=== PATIENT | male | born 1960 ===

== ENCOUNTER 2021-06-14 10:38 | Inpatient (IN) | payer OTHER ==
[~2021-06-14] VITALS: Ht 172.7 cm; Wt 69.2 kg
[2021-06-14] VITALS (566 sets, daily range): BP systolic 105; BP diastolic 70; PULSE 84; TEMP 98.6; O2SAT 82–99
[2021-06-14] MEDS ORDERED: PRILOSEC 20MG20 MG PO (10:51)
[2021-06-14 11:23] LABS: BASO % 0.4 % (0.0-2.0); EOS # 0.1 K/mm3 (0.0-0.7); EOS % 1.5 % (0.0-4.0); GRAN # 7.5 K/mm3 (1.4-6.5); HEMATOCRIT 41.4 % (42.0-52.0); HEMOGLOBIN 14.3 g/dl (13.5-18.0); LYMPH # 1.3 K/mm3 (1.2-3.4); LYMPH % 13.3 % (20.0-51.0); MEAN CELL VOLUME 87 fl (80.0-100.0); MEAN CORPUSCULAR HEMOGLOBIN 30 pg (27-31); MEAN CORPUSCULAR HGB CONC 35 g/dl (33.0-37.0); MEAN PLATELET VOLUME 9.7 fl (7.4-10.4); MONO # 0.4 K/mm3 (0.1-0.6); MONO % 4.5 % (1.7-9.3); PLATELET COUNT 159 K/mm3 (130-400); RED BLOOD COUNT 4.78 M/mm3 (4.20-5.60); REDCELL DISTRIBUTION WIDTH-CV 13.8 % (11.5-14.5)
[2021-06-14 11:58] LABS: TROPONIN-I 0.205 ng/mL (0.00-0.033)
[2021-06-14 11:59] LABS: ALBUMIN 4.2 gm/dL (3.4-4.8); BILIRUBIN,TOTAL 0.9 mg/dL (0.2-1.2); CALCIUM 9.5 mg/dL (8.4-10.2); CREATININE, serum 1.13 mg/dL (0.72-1.25); POTASSIUM 4.5 mmol/L (3.5-4.5); TOTAL PROTEIN 7.4 gm/dL (6.2-8.1)
--- NOTE | 2021-06-14 16:08 | NUR ---
PT SITTING UP IN BED; HAVING CONVERSATION WITH FRIEND. NO SOB AT THIS TIME. DOES HAVE SOME SOB WITH ACTIVITY. REPORTS NO PAIN AT REST. DOES HAVE SOME PAIN IN LEFT CALF/POPLITEAL WITH MOVEMENT. PT OFFERS NO COMPLAINTS.
[2021-06-15] VITALS (597 sets, daily range): BP systolic 102–113; BP diastolic 69–77; PULSE 67–83; TEMP 97.7–98.7; O2SAT 74–99
[2021-06-15 05:59] LABS: BASO % 0.5 % (0.0-2.0); EOS # 0.2 K/mm3 (0.0-0.7); GRAN # 4.5 K/mm3 (1.4-6.5); GRAN % 59.6 % (42.2-75.2); HEMATOCRIT 38.1 % (42.0-52.0); HEMOGLOBIN 12.6 g/dl (13.5-18.0); LYMPH # 2.3 K/mm3 (1.2-3.4); LYMPH % 29.8 % (20.0-51.0); MEAN CELL VOLUME 89 fl (80.0-100.0); MEAN CORPUSCULAR HEMOGLOBIN 29 pg (27-31); MEAN CORPUSCULAR HGB CONC 33 g/dl (33.0-37.0); MEAN PLATELET VOLUME 9.8 fl (7.4-10.4); MONO # 0.5 K/mm3 (0.1-0.6); MONO % 6.8 % (1.7-9.3); PLATELET COUNT 157 K/mm3 (130-400); RED BLOOD COUNT 4.28 M/mm3 (4.20-5.60)
[2021-06-15 06:22] LABS: CALCIUM 8.8 mg/dL (8.4-10.2); CREATININE, serum 0.93 mg/dL (0.72-1.25); POTASSIUM 4.1 mmol/L (3.5-4.5)
[2021-06-15 06:41] LABS: TROPONIN-I 0.158 ng/mL (0.00-0.033)
--- NOTE | 2021-06-15 08:15 | NUR ---
Awake and resting in bed; A&OX4. Denies any shortness of breath at rest. Reports some increased work of breathing on exertion. Denies chest pain. Assisted to order breakfast and requesting items for a "bath". Call light left within reach.
--- NOTE | 2021-06-15 09:30 | NUR ---
Initial visit; Patient thanked Marketing Database Consultant for looking in on him. Patient very busy making calls; appearing to be task oriented and not relaxing until he informs people where he is. joked with him for a second and made him laugh. He thanked Marketing Database Consultant for her visit and for her sense of humor and God's blessings.
--- NOTE | 2021-06-15 11:30 | NUR ---
DAYSI met with the patient to discuss discharge plan. The patient lives in [place], [place] with his , Angely (ph#[phone]). 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 He has been staying at a hotel while here. He reports independence with ADLs and does not have any DME. The patient's PCP is Dr. Heller in [place] and he plans to get his medications from [facility] while here. The patient does not have a DPOA-HC in EMR, but he states that he does have one completed and that it designates his . He states that his will be arriving in [place] later today and he plans on returning back to the [facility] in [place] upon discharge. No additional needs at this time. *Discharge plan: Hotel in [place]*
--- NOTE | 2021-06-15 16:00 | NUR ---
Dr. Jackson at bedside. Discussed in length about plan of care and treatment options. All questions and concerns addressed at this time.
[2021-06-16] VITALS: BP 108/71; PULSE 67
[2021-06-16 04:00] VITALS: BP 106/65; PULSE 58; TEMP 98.2
[2021-06-16 05:48] VITALS: O2SAT 92
[2021-06-16 08:00] VITALS: BP 107/68; PULSE 74; TEMP 98.4
--- NOTE | 2021-06-16 09:20 | NUR ---
Follow-up visit; Patient thanked Embedder for stopping by again and said our prayers yesterday worked and he is much better today. Embedder wished him well and God's blessings.
[2021-06-16] MEDS ORDERED: ELIQUIS 5MG PO (09:54)
[2021-06-16 12:17] VITALS: O2SAT 97
--- NOTE | 2021-06-16 13:15 | NUR ---
PATIENT READY FOR DISCHARGE; WAITING FOR LUNCH
--- NOTE | 2021-06-16 14:30 | NUR ---
PATIENT AMBULATORY AND STATES LEG FEELS BETTER WHEN UP WALKING AROUND; PATIENT BEING DISCHARGED HOME WITH HIS WHO IS A NURSE PRACTITIONER WITH INSTRUCTIONS TO FOLLOW UP WITH PCP AND CARDIO WHEN BACK HOME IN [place].
== END 2021-06-16 14:35 | disposition home or self-care (01) | DRG 176 ==
LOC: COL.ER 10:38 → ICU 12:42
PROVIDERS: Emergency Medicine; Physician Assistant; ADMIT Internal Medicine
DX: I26.99 Other pulmonary embolism without acute cor pulmonale (principal); I82.412 Acute embolism and thrombosis of left femoral vein; I82.432 Acute embolism and thrombosis of left popliteal vein; I82.442 Acute embolism and thrombosis of left tibial vein; I08.2 Rheumatic disorders of both aortic and tricuspid valves; I51.9 Heart disease, unspecified; K21.9 Gastro-esophageal reflux disease without esophagitis; I27.20 Pulmonary hypertension, unspecified; Z87.891 Personal history of nicotine dependence
CPT/HCPCS: 99223-AI; 99232-AI; 99239; J1650; J7030; Q9967